=== PATIENT | female | born 1975 | race American Indian/Alaskan Native ===

== ENCOUNTER 2016-12-27 09:34 | Outpatient (CLI) | payer MEDICAID ==
[2016-12-27 10:27] LABS: Hematocrit 35.5 % (30.3-42.9); Hemoglobin 11.5 gm/dl (10.1-14.3); Mean Corpuscular HGB Conc 32 % (30-34); Mean Corpuscular Hemoglobin 27 pg (28-32); Mean Corpuscular Volume 85 fl (79-97); Platelet Count 347 K/mm3 (140-440); Red Blood Count 4.19 M/mm3 (3.65-5.03); Red Cell Distribution Width 14.5 % (13.2-15.2); White Blood Count 7.1 K/mm3 (4.5-11.0)
[2016-12-27 10:49] LABS: Alanine Aminotransferase 9 units/L (7-56); Albumin 3.5 g/dL (3.9-5); Alkaline Phosphatase 64 units/L (35-129); Anion Gap 13 mmol/L; Bilirubin,Total 0.3 mg/dL (0.1-1.2); Blood Urea Nitrogen 7 mg/dL (7-17); Calcium 8.9 mg/dL (8.4-10.2); Carbon Dioxide 28 mmol/L (22-30); Chloride 102.1 mmol/L (98-107); Glucose 107 mg/dL (65-100); Potassium 3.5 mmol/L (3.6-5.0); Sodium 140 mmol/L (137-145); Total Protein 7.1 g/dL (6.3-8.2)
--- NOTE | 2016-12-27 11:24 | Ultrasound Report ---
ULTRASOUND ABDOMEN LIMITED INDICATION: Acute cholecystitis. COMPARISON: None similar at this institution. FINDINGS: Right upper quadrant ultrasound demonstrates slight diffuse hepatic coarsening, possibly subtle fatty infiltration versus intrinsic disease. No definite focal suspicious lesions or biliary dilatation however. Approximately 2.7 cm echogenic, shadowing, non-mobile gallstone noted toward gallbladder neck. Mild gallbladder sludge as well. Positive sonographic Jolly's sign. No pericholecystic fluid however. Gallbladder wall thickness is 1.3 mm. Common bile duct is 5 mm. Normal imaged pancreas, IVC, abdominal aorta and the right kidney. CONCLUSION: Non-mobile gallstone at the gallbladder neck, positive sonographic Jolly's sign and gallbladder sludge noted, as described. Acute cholecystitis may be correlated for clinically in an appropriate setting. I phoned the above results to Ms. Porter and Dr. Dominguez, 11:10 AM, 12/27/2016. Thank you for the opportunity to participate in this patient's care.
== END 2016-12-27 09:35 | disposition home or self-care (01) ==
LOC: US 09:34
PROVIDERS: ATTEND Surgery
DX: K80.10 Calculus of gallbladder with chronic cholecystitis without obstruction (principal)
CPT/HCPCS: 36415; 76705; 80053; 84703; 85027